=== PATIENT | male | born 1990 | race Caucasian/White ===

== ENCOUNTER 2020-10-10 14:30 | Outpatient (RCR) | payer OTHER, SELFPAY ==
--- NOTE | 2020-09-05 16:19 | PTOPEVAL ---
INITIAL PHYSICAL THERAPY EVALUATION and PLAN OF CARE Thank you for referring Cesar Arenas to [facility].? Cesar is scheduled to be seen for physical therapy? 2x/week for 4 weeks. Please review, sign, date and return this plan of care LINETTE. I agree with and certify that the following plan of care is medically necessary. Referring Physician Date Admitting Provider: Attending Provider: Devante Eduardo, Referring Provider: *PT Outpatient Evaluation Start: 09/05/20 15:10 Freq: Status: Active Protocol: Document 09/05/20 15:10 MARLA (Rec: 09/05/20 16:19 MARLA [id number]) Therapy Assessment Status Assessment Status Assessment Status Evaluation Outpatient Past Medical History Past Medical History Source of Past Medical History Patient Evaluation Information Problem Diagnosis neck pain Onset ~3 wks ago Subjective Information Began lifting weights - added Query Text:As Reported By Patient/ triceps press - 1 wt 40-50# - Family began to notice shoulder pain - then more in neck - shooting pain into L arm - mainly from elbow to 1/2 down fore arm. Sleeping - foam pillow - been trying to sleep on back - where feels more comfortable, otherwise side sleeping in a marked flexed position Initially had trouble getting comfortable - once did that - will get shooting pain into arm and neck about 1 hour later. With muscle relaxers - able to sleep through the night - stiff and sore in mornings. Takes a couple of hours for the soreness to go away. 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 Home Meds Must Be Re-entered With Each Visit. Comments Additional Prior Level of Function recreation - lift corey
--- NOTE | 2020-10-08 13:47 | PCPTNOTE ---
Patient called & cancelled scheduled appointment this date due to work. He rescheduled re-eval for 10/10/20.
--- NOTE | 2020-10-10 16:19 | PTOPEVAL ---
PHYSICAL THERAPY DISCHARGE SUMMARY Thank you for referring Cesar Arenas to [facility].? Cesar has been seen in PT x 9 treatments. He has met all goals set with exception of L UE numbness with certain movements at times. Using a more neutral cervical position did help reduce this numbness - so he was educated about watching his positioning with activities. He is to continue with either his HEP or with working out program. I agree with Cesar's discharge from PT. Referring Physician Date Admitting Provider: Attending Provider: Devante Eduardo, MD Referring Provider: Therapy Assessment Status Assessment Status Assessment Status Discharge Outpatient Past Medical History Past Medical History Source of Past Medical History Patient Evaluation Information Problem Diagnosis neck pain Subjective Information Cesar states that he is Query Text:As Reported By Patient/ still getting numbness - pins Family and needles - burning sensation from forearm to hand or from hand to forearm with certain work positions. Numbness will be in the entire hand. Not having any neck now and has return to working out and full duty work. No problems with numbness with bench press. Did explore using neutral position of neck when duplicating work related activities - was able to decrease L UE numbness. Pain Assessment Self Report Pain Assessment Posterior Neck Reported Pain Level 0 Additional Pain Comments burning/numbness still occurring in L UE - midforearm distally Cervical and Lumbar ROM Cervical ROM Cervical Flexion (0-60) 50 Query Text:Active in Degrees Cervical Extension (0-70) 45 Query Text:Active in Degrees Cervical Rotation Right (0-90) 80 Query Text:Active in Degrees Cervical Rotation Left (0-90) 80 Query Text:Active in Degrees Cervical ROM Comments cervical side bending - 55 deg ea direction normal cervical segmental mobility present no discomfort with motion Cervical and Lumbar Muscle Testing Cervical Muscle Testing Deep Cervical Flexion stopped at 2 min 17 sec Palpation Assessment Palpation Palpation Mild decreased mobility with C7,6 segments with P-A motion - some discomfort elicited with C6
== END 2020-11-11 10:00 | disposition home or self-care (01) ==
LOC: ANHHIPT 14:30
PROVIDERS: PCP Internal Medicine; Visit Provider Internal Medicine
DX: M54.2 Cervicalgia (principal)
CPT/HCPCS: 97035; 97110; 97140; 97161